=== PATIENT | female | born 1970 | race Two or more races ===

== ENCOUNTER 2022-07-04 10:22 | Day surgery (SDC) | payer OTHER ==
[2022-07-04 11:11] LABS: Eosinophils # (auto) 0 10 ^3/uL (0-0.8); Hematocrit 30.9 % (36.0-46.0); Hemoglobin 9.4 g/dL (12.2-16.2); Lymphocytes # (auto) 1.1 10 ^3/uL (0.4-5.4); Mean Corpuscular Hgb Conc. 30.4 g/dL (32.0-36.0); Neutrophils % (auto) 70.2 % (37.0-80.0); White Blood Cell 5.2 10^3/uL (4.4-10.8)
[2022-07-04 11:13] LABS: Basophils # (auto) 0 10 ^3/uL (0-0.2); Basophils % (auto) 0.7 % (0.0-2.0); Eosinophils % (auto) 0.3 % (0.0-7.0); Lymphocytes % (auto) 22.2 % (10.0-50.0); Mean Corpuscular Hemoglobin 23.2 pg (28.0-32.0); Mean Corpuscular Volume 76.4 fL (80.0-100.0); Monocytes # (auto) 0.3 10 ^3/uL (0-1.3); Monocytes % (auto) 6.6 % (0.0-12.0); Neutrophils # (auto) 3.6 10 ^3/uL (1.6-8.6); Red Blood Cells 4.04 10^6/uL (4.0-5.20); Red Cell Distribution Width 17.4 % (11.8-14.3)
[2022-07-04 11:20] LABS: INR 1.04 (0.9-1.15); Partial Thromboplastin Time 25.4 sec (24.6-33.4)
[2022-07-04 11:56] LABS: Albumin 3.8 g/dL (3.4-5.0); Calcium 8.4 mg/dL (8.5-10.1); Potassium 3.6 mmol/L (3.5-5.1)
[2022-07-04 12:01] LABS: BUN/Creatinine Ratio 10.1; Bilirubin, Total 0.6 mg/dL (0.2-1.0); Total Protein 8.1 g/dL (6.4-8.2)
[2022-07-04 13:30] LABS: Urine Bacteria NONE SEEN /hpf (None Seen); Urine Blood Negative /uL (Negative); Urine Specific Gravity 1.026 (1.001-1.035); Urine WBC 1 /hpf (0 - 5)
[2022-07-04] MEDS: diphenhdrAMINE HCL 50 MG/1 ML VL ONE ×2 (13:52→13:53)
[2022-07-04] MEDS: fentaNYL CITRATE 100 MCG/2 ML VL ONE ×2 (13:52→13:57)
[2022-07-04] MEDS: MIDAZOLAM HCL 5 MG/ML-1ML VIAL ONE ×2 (13:52→13:57)
[2022-07-04 15:00] VITALS: BP 170/98
== END 2022-07-04 15:00 | disposition home or self-care (01) ==
LOC: GI 10:22
PROVIDERS: ATTEND Internal Medicine Gastroenterology
DX: K62.5 Hemorrhage of anus and rectum (principal); D12.2 Benign neoplasm of ascending colon; K64.0 First degree hemorrhoids; K57.30 Diverticulosis of large intestine without perforation or abscess without bleeding; I12.9 Hypertensive chronic kidney disease with stage 1 through stage 4 chronic kidney disease, or unspecified chronic kidney disease; N18.9 Chronic kidney disease, unspecified; Z90.710 Acquired absence of both cervix and uterus; Z98.890 Other specified postprocedural states
CPT/HCPCS: 36415; 45385; 71045; 80053; 81001; 85025; 85610; 85730; 88305; J1200; J2250; J3010; J7030